=== PATIENT | male | born 1930 | race Caucasian/White ===

== ENCOUNTER 2018-09-29 05:05 | Inpatient (IN) ==
[2018-09-29] MEDS ORDERED: NS 1,000 ML IV ONE (05:43)
[2018-09-29] MEDS ORDERED: ZOFRAN IV ONE (05:44)
[2018-09-29 06:02] LABS: BASO# 0.07 X1000 (0.0-0.2); BASO% 0.7 % (0.0-0.8); EOS# 0.31 X1000 (0.0-0.7); EOS% 2.9 % (0.0-10.0); HEMATOCRIT 39.5 % (42.0-52.0); HEMOGLOBIN 13.3 g/dL (14.0-18.0); IMM GRAN# 0.02 X1000 (0.0-0.04); IMM GRAN% 0.2 % (0.0-0.5); LYMPH# 1.91 X1000 (1.2-3.4); MCH 31.1 PG (27-31); MCHC 33.7 g/dL (33-37); MCV 92.3 FL (81-99); MONO# 0.75 X1000 (0.11-0.59); MONO% 7.1 % (1.7-9.3); MPV 10.6 FL (7.4-10.4); NEUT# 7.55 X1000 (1.4-6.5); NEUT% 71.1 % (42.2-75.2); PLT 215 X1000 (130-400); RBC 4.28 XMIL (4.7-6.1); WBC 10.61 X1000 (4.8-10.8)
--- NOTE | 2018-09-29 06:06 | PROVIDER DOCUMENTATION ---
HPI-General Adult - General Chief Complaint: GI Bleed Stated Complaint: RECTAL BLEEDING Time Seen by Provider: 09/29/18 05:45 Source: patient Allergies/Adverse Reactions: Patient Allergies Allergy/AdvReac Type Severity Reaction Status Date / Time No Known Allergies Allergy Verified 10/17/14 08:19 Home Medications: Home Medication List Medication Instructions Recorded Confirmed Last Taken Type Amlodipine [Norvasc] 5 mg PO BID 10/17/14 10/23/14 10/23/14 03:30 History 5 - History of Present Illness -Gen Adult Nature of Presenting Problems: 88 y/o M presents to the ED complaining of rectal bleeding states he awoke this morning feeling like he needed to use the toilet and when he had a BM noted that it was all bright red blood. States since he has had 6-7 additional similar episodes. With this has felt slightly nauseated but has not had emesis. No fever. Has a similar episode several years ago and states he had a bleeding artery in his colon that required surgery. Does not taken blood thinners. Review of Systems - Adult - REVIEW OF SYSTEMS - ADULT Constitutional: reports: no symptoms reported Eyes: reports: no symptoms reported Ears, Nose, Mouth & Throat: reports: no symptoms reported Cardiovascular: reports: no symptoms reported Respiratory: reports: no symptoms reported Gastrointestinal: reports: rectal bleeding Genitourinary: reports: no symptoms reported Musculoskeletal: reports: no symptoms reported Integumentary: reports: no symptoms reported Neurological: reports: no symptoms reported Psychiatric: reports: no symptoms reported Endocrine: reports: no symptoms reported Hematologic/Lymphatic: reports: no symptoms reported Allergic/Immunologic: reports: no symptoms reported All Other Systems: Reviewed and Negative Past History - Adult - PAST MEDICAL HISTORY-ADULT Review of Records: reports: Old Records Reviewed, Nursing Assessment Review, Medications Reviewed, Social history reviewed & non-contributory. Cardiovascular: reports: HTN Physical Exam-General - PHYSICAL EXAM-ADULT Initial Vital Signs Reviewed: Yes - CONSTITUTIONAL General Appearance: appears well, alert, no apparent distress - EYES Eyes: PERRL/EOMI, pink conjunctivae - HEAD, EARS, NOSE, MOUTH & THROAT HENMT: normocephalic/atraumatic, moist mucous membranes, normal ENT inspection - NECK Neck: non-tender, full range of motion, supple - RESPIRATORY Respiratory: chest non-tender, lungs clear, normal breath sounds - CARDIOVASCULAR Cardiovascular: normal peripheral pulses, regular rate, rhythm, no edema - GASTROINTESTINAL (ABDOMEN) Abdominal Exam: normal bowel sounds, non tender, soft - GENITOURINARY Hemoccult Exam: other (scant bright red blood in rectal exam) - MUSCULOSKELETAL Back Exam: normal inspection, no CVA tenderness, no vertebral tenderness Extremity: normal range of motion, non-tender - SKIN Integumentary: normal color, normal turgor, warm/dry - NEUROLOGIC Neurologic: grossly normal, no motor/sensory deficits - PSYCHIATRIC Psych/Mental Status: normal mood/affect, normal thought content, normal thought process, oriented x 3 Progress - PLAN OF CARE/RESULTS Progress/Plan/Lab Results: Vital Signs - 8 hr 09/29/18 05:15 Temperature 98.4 F Pulse Rate 76 Respiratory Rate 17 Blood Pressure 146/89 O2 Sat by Pulse Oximetry 95 Orders Category Date Time Status IV Insertion ORDERED Care 09/29/18 05:[address] ABD/PELVIS W/IV CONT ONLY [CT] Stat Exams 09/29/18 05:43 Ordered CBC WITH ELECTRONIC DIFF [HEME] Stat Lab 09/29/18 05:35 Results COMPREHENSIVE METABOLIC PANEL [CHEM] Stat Lab 09/29/18 05:35 Received LIPASE [CHEM] Stat Lab 09/29/18 05:35 Received OCCULT BLOOD SCREENING [STOOL] Stat Lab 09/29/18 05:35 Received TYPE & SCREEN [BBK] Stat Lab 09/29/18 05:35 Received 0.9% Sodium Chloride Inj [Ns] 1,000 ml Med 09/29/18 05:43 Active IV 999 mls/hr Ondansetron [Zofran] Med 09/29/18 05:44 Discontinued 4 mg IV NOW ONE gi bleeding no hypotension or tachycardia and well appearing will further evaluate for causes of GI bleed and degree of bleeding. Result Diagrams: 09/29/18 05:35 09/29/18 05:35 - REASSESSMENT Reassessment #1 Status: other (signed out to Dr. Oreilly at [address] results and final disposition) - CONSULTS/PCP/HOSPITALIST Notification #1 *Consult/PCP/Hospitalist*: Dr Gutierres Time Discussed: 08:04 Reason/Comments: agrees to admit pt Consult Disposition: Will see in ED, Admit Departure - Departure Date of Disposition Decision: 09/29/18 Time of Disposition Decision: 08:04 DIAGNOSIS: GI bleeding Disposition: ADMITTED INPATIENT 09 Certified Medical Emergency: Emergent Condition: Fair Referrals and Follow-Ups: Radha Gutierres MD [Primary Care Provider] - - Critical Care Note This patient required my direct & personal management of CC.: No Attestation - Physician/ YOHANA Attestation Patient care was provided by Advanced Practice Provider:: No The physician spent face to face time with patient:: Yes Advanced Practice Provider documentation review:: Supervising physician onsite and consulted in the evaluation and care of this patient. The physician did have a face to face encounter with the patient.
[2018-09-29 06:32] LABS: AGAP 13; ALB/GLOB RATIO 1.4; ALBUMIN 3.9 g/dL (3.5-5.0); ALKALINE PHOSPHATASE 101 U/L (32-122); BUN 24 mg/dL (8-22); CALCIUM 8.6 mg/dL (8.8-10.2); CHLORIDE 108 mmol/L (98-107); COSMO 292; ESTIMATED GFR > 60; GLUCOSE 117 mg/dL (70-104); GOT 15 U/L (10-34); GPT 12 U/L (10-44); LIPASE 36 U/L (13-60); POTASSIUM 4.1 mmol/L (3.5-5.1); SODIUM 144 mmol/L (136-145); TCO2 23 mmol/L (25-35); TOTAL BILIRUBIN 0.34 mg/dL (0.20-1.00); TOTAL PROTEIN 6.7 g/dL (6.3-8.3)
--- NOTE | 2018-09-29 08:04 | Diag Imaging Result Doc PS360 ---
CT ABD/PELVIS W/IV CONT ONLY - 09/29/2018 INDICATION: GI bleeding COMPARISON: 10/25/2014 FINDINGS: There is mild cardiomegaly. The lung bases are clear. Stable bilateral calcified pleural plaques compatible with old asbestos exposure. 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 There are cholecystectomy clips. There are bilateral benign renal cysts. The pancreas, spleen, and adrenals are normal. No bowel obstruction or inflammation. There is severe diverticulosis of the descending and sigmoid colon. Prostate gland is atrophic or absent. Urinary bladder and rectum are normal. No free air or free fluid. Stable left hip prosthesis in good position. There are moderate degenerative changes of the spine. No acute or suspicious bony lesion. IMPRESSION: Severe diverticulosis coli. No acute process. This exam was performed using automated exposure control, adjustment of mA or kV according to patient size, and/or use of iterative reconstruction technique Electronically signed by Fernando Shin 09/29/2018 8:02 AM
[2018-09-29] MEDS ORDERED: PROTONIX IV SCH (08:15)
[2018-09-29] MEDS ORDERED: SODIUM CHLORIDE 0.9% INJ SCH (08:15)
[2018-09-29] MEDS ORDERED: NS 1,000 ML IV SCH (08:15)
--- NOTE | 2018-09-29 11:19 | GASTROENTEROLOGY CONSULTATION ---
DATE: 09/29/2018 REASON FOR CONSULTATION: Hematochezia. HISTORY OF PRESENT ILLNESS: Mr. Berto Oh is an 88-year-old gentleman with HTN, GERD, OA, vitamin B12 deficiency, diverticulosis, R BKA, peripheral neuropathy, and remote partial colectomy secondary to "bleeding artery in the colon" who presents with acute onset rectal bleeding with dark bloody stools. The patient reports awaking around 3AM with lower abdominal cramping and urge to defecate. He subsequently developed multiple bloody stools, as described above, up to 6 times. His last BM was around 5:15AM this AM. His abdominal cramping has now resolved. No N/V/F, CP, SOB, lightheadedness. He reports rectal bleeding in the remote past requiring surgery in the . His last colonoscopy was done by Dr. Miller over 5 years ago. He reports not unable to tolerate Golytely prep in the past and required NGT placement to complete prep. Unknown baseline hgb. 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 PAST SURGICAL HISTORY: Partial colectomy on the left side, right below-knee amputation, bilateral cataract surgery, appendectomy, cholecystectomy, hip replacement on the left side, shoulder surgery bilateral by Dr. Hernandez and Dr. Grant. MEDS: Celebrex, vitamin B12, Colace, Norvasc ALL: NKDA FH: no FHx of GI malignancies SH: No T/E/D PE: VS: T 98.0 HR 95 BP 157/99 RR 18 O2 97% RA GEN: awake, alert, NAD HEENT: anicteric, MMM, EOMI NECK: supple, no jvd CV: RRR, no murmurs PULM: CTAB, no wheezing ABD: surgical scars, NT/ND, NABS EXT: RLE prosthesis, LLE without cce, WWP NEURO: nonfocal LABS: BUN 24 otherwise BMP unremarkable Hgb 13.3 (unknown baseline) WBC/Plts WNL lipase 36 CTAP: CT ABD/PELVIS W/IV CONT ONLY - 09/29/2018 INDICATION: GI bleeding COMPARISON: 10/25/2014 FINDINGS: There is mild cardiomegaly. The lung bases are clear. Stable bilateral calcified pleural plaques compatible with old asbestos exposure. 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 There are cholecystectomy clips. There are bilateral benign renal cysts. The pancreas, spleen, and adrenals are normal. No bowel obstruction or inflammation. There is severe diverticulosis of the descending and sigmoid colon. Prostate gland is atrophic or absent. Urinary bladder and rectum are normal. No free air or free fluid. Stable left hip prosthesis in good position. There are moderate degenerative changes of the spine. No acute or suspicious bony lesion. IMPRESSION: Severe diverticulosis coli. No acute process. ASSESSMENT AND PLAN: Mr. Berto Oh is an 88-year-old gentleman with HTN, GERD, OA, vitamin B12 deficiency, diverticulosis, R BKA, peripheral neuropathy, and remote partial colectomy secondary to "bleeding artery in the colon" who presents hematochezia from suspected diverticular bleed. His rectal bleeding has subsided and CTAP showed severe diverticulosis in the left colon. He reports remote colon surgery for "ruptured artery"; unclear etiology. Will plan for diagnostic colonoscopy given patient has not had a colonoscopy in several years to rule out AVMs, malignancy, bleeding polyp. #LGIB: as above - clear liquid diet - hold blood thinners - fluid resuscitation - trend H/H q8-12 hours, transfuse as needed to maintain hgb between 7-8 - prep with bisacodyl tabs and miralax prep (discussed with pharmacy) tonight - NPO after MN, diagnostic colonoscopy with Dr. Strong tomorrow #HTN: continue norvasc #OA: hold celebrex #Diverticulosis on imaging: noted Thank you for this consult. Will follow with you [facility]
[2018-09-29] MEDS ORDERED: DULCOLAX PO ONE ×2 (16:57→17:00)
[2018-09-29] MEDS ORDERED: MIRALAX PO ONE ×2 (16:59→17:00)
[2018-09-29] MEDS ORDERED: ZOFRAN IV PRN (21:37)
--- NOTE | 2018-09-29 22:15 | HISTORY AND PHYSICAL ---
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 HISTORY OF PRESENT ILLNESS: He is an 88-year-old, pleasant white gentleman who came in with lower GI bleeding, painless. He had 3 bouts of bleeding as per the . Hemodynamics were stable. Belly exam soft, benign. CT scan of the abdomen and pelvis findings noted with diverticulosis. I consulted Dr. Hammond. He has been admitted to the hospital for hematochezia and further evaluation. 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 PAST SURGICAL HISTORY: Partial colectomy on the left side, right below-knee amputation, bilateral cataract surgery, appendectomy, cholecystectomy, hip replacement on the left side, shoulder surgery bilateral by Dr. Hernandez and Dr. Grant. MEDICINES: Celebrex 200 daily, B12 shot 1 mL every month, Colace 100 daily, Norvasc 5 mg daily. ALLERGIES: Not known. SOCIAL HISTORY: He is . Lives in [place]. No smoking. No alcohol. FAMILY HISTORY: Father of pneumonia at 82. Mother of pneumonia at 38. HEALTH MAINTENANCE: Flu vaccine 2016. Last prostate exam October 2017. Colonoscopy was declined. REVIEW OF SYSTEMS: HEENT: No headache. No vision problem. No earache. No sore throat. Cardiopulmonary: No chest pain, shortness of breath, PND, orthopnea. Gastrointestinal: Abdominal cramps. Bleeding per rectum. No weight loss. Genitourinary: No history of hesitancy, frequency, or dysuria. Musculoskeletal: Left leg has numbness in the front of the thigh. Complains off chronic bilateral shoulder pains; left is worse than the right side. PHYSICAL EXAMINATION: VITAL SIGNS: Temperature is 98 degrees, pulse 78, blood pressure is stable. Weight 179 pounds, height 5 feet. Oxygen saturation 93% on room air. HEENT: Atraumatic, normocephalic. Pupils equal, reactive to light. TMs are normal. Nose and throat within normal limits. NECK: Supple. No lymphadenopathy. No goiter. No neck rigidity. CARDIOPULMONARY: Bilateral air entry. No rales, no wheezes. HEART: Sounds are regular. No murmur. ABDOMEN: Belly is soft, nontender. No signs of peritonitis. RECTAL: Deferred. EXTREMITIES: Right below-knee amputation. Left knee had some pain. NEUROLOGIC: No obvious neurological deficits. INVESTIGATIONS: CBC: White cell count 10.6, hematocrit 39.5, platelets 215,000. SMA-7: Sodium 144, potassium 4.1, BUN 24, creatinine 1.0, glucose 117, calcium 8.6. LFTs are normal. CT scan of the abdomen and pelvis: Severe diverticulosis, calcified pleural plaques, vascular disease abdominal aorta and renal arteries, cholecystectomy, bilateral renal cysts, left hip prosthesis, moderate DJD changes in the spine. ASSESSMENT AND PLAN: 1. An 88-year-old white gentleman admitted to the hospital basically with lower gastrointestinal bleeding with hematochezia with diverticulosis. Plan is hemodynamics, orthostatic blood pressure, serial hematocrits, GI consult with Dr. Hammond. 2. Other problems as follows: 3. Left shoulder pains due to osteoarthritis. Going for stem-cell transplant. 4. Hypertension on Norvasc 5 mg daily. 5. Vitamin B12 deficiency, on replacement therapy. 6. Chronic back pain due to degenerative joint disease changes, followed by chiropractor. 7. Status post amputation below knee on the right leg, stable. 8. 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 Slowly got better, and will follow up. 9. Complains of insomnia. Ambien at bedtime. 10. Appreciate the GI consult. Follow up. cc: Demetrius Gutierres MD
[2018-09-29] MEDS: NS 1,000 ML IV SCH (22:23)
[2018-09-29] MEDS: AMBIEN PO PRN (22:23)
[2018-09-30 07:49] LABS: BASO# 0.04 X1000 (0.0-0.2); BASO% 0.5 % (0.0-0.8); EOS# 0.32 X1000 (0.0-0.7); EOS% 4.3 % (0.0-10.0); HEMATOCRIT 37.1 % (42.0-52.0); HEMOGLOBIN 12.4 g/dL (14.0-18.0); LYMPH# 1.11 X1000 (1.2-3.4); MCH 31.1 PG (27-31); MCHC 33.4 g/dL (33-37); MONO% 6.8 % (1.7-9.3); MPV 10.3 FL (7.4-10.4); NEUT# 5.43 X1000 (1.4-6.5); NEUT% 73.4 % (42.2-75.2); PLT 200 X1000 (130-400); RBC 3.99 XMIL (4.7-6.1); RDW 13.1 % (11.5-14.5)
[2018-09-30 08:18] LABS: AGAP 9; BUN 12 mg/dL (8-22); CALCIUM 8.3 mg/dL (8.8-10.2); CHLORIDE 109 mmol/L (98-107); COSMO 287; CREATININE 0.8 mg/dL (0.7-1.2); ESTIMATED GFR > 60; GLUCOSE 104 mg/dL (70-104); POTASSIUM 4.4 mmol/L (3.5-5.1); SODIUM 144 mmol/L (136-145); TCO2 26 mmol/L (25-35)
[2018-09-30] MEDS ORDERED: XYLOCAINE-MPF 2% ONE (09:26)
[2018-09-30] MEDS ORDERED: FENTANYL ONE (09:26)
[2018-09-30] MEDS ORDERED: DIPRIVAN 1% ONE (09:26)
[2018-09-30] MEDS ORDERED: EPHEDRINE ONE (09:49)
[2018-09-30] MEDS ORDERED: SODIUM CHLORIDE 0.9% 10 ML ONE (09:49)
[2018-09-30] MEDS: MIRALAX PO SCH ×2 (11:25→20:58)
[2018-09-30] MEDS: PROTONIX IV SCH (11:26)
--- NOTE | 2018-09-30 11:26 | OPERATIVE NOTE ---
PROCEDURE DATE: 09/30/2018 REQUESTING PHYSICIAN: Dr. Gutierres. TITLE OF PROCEDURE: Ileocolonoscopy. PREOPERATIVE DIAGNOSES: 1. Rectal bleeding. 2. Mild anemia. POSTOPERATIVE DIAGNOSES: 1. Internal hemorrhoids grade 2. On retroflexion, there was evidence of a fair prep with stool throughout the colon with limited visualization, evidence of severe diverticulosis in the sigmoid and descending colon, likely the cause of patient's gastrointestinal bleeding. 2. Normal terminal ileum. ESTIMATED BLOOD LOSS: None. COMPLICATIONS: None. ANESTHESIA: Monitored anesthesia care per the anesthesiologist. SPECIMENS: None. PROCEDURE: After informed consent, the patient explained the risks, benefits, indications, and alternatives of the procedure. The patient was prepared for colonoscopy. The risks of the procedure, including infection, bleeding, pain, trauma to the surrounding structures, perforation, , were explained the patient among others. He acknowledged and agreed to proceed. The patient was brought to the OR. He was turned left lateral position. Rectal exam was performed, which revealed normal rectal tone. No masses felt. No blood on the examining finger. The colonoscope was introduced through the anal verge all the way to the terminal ileum. Terminal was normal. The bowel prep was fair. There was a lot of stool throughout the colon, this was lavaged. The visualization was fair. There was evidence of severe diverticulosis in the descending and sigmoid colon, likely source of patient's GI bleeding. Retroflexion in the rectum revealed internal hemorrhoids, grade 2. The air was aspirated and the scope was withdrawn. The patient tolerated the procedure well and is currently monitored in the OR in stable condition. RECOMMENDATIONS: 1. The patient will be on diverticulosis diet. Avoid excessive corn, nuts, and seeds in diet. 2. We will start patient on MiraLAX 17 g p.o. b.i.d. and we will start the patient on Metamucil 1 tablespoon at bedtime. 3. Watch patient's hematocrit and transfuse as needed. 4. The patient will be started on full liquid diet, advance as tolerated. We will start the patient on full liquid diet today. The above plan of care was discussed with the patient on waking up and all questions answered. Please call us with any further questions. cc: MD Demetrius Kumar MD [facility]
[2018-09-30] MEDS: SODIUM CHLORIDE 0.9% INJ SCH (11:27)
[2018-09-30] MEDS: NS 1,000 ML IV SCH ×2 (15:07→22:39)
[2018-09-30] MEDS: AMBIEN PO PRN (20:58)
[2018-09-30] MEDS ORDERED: METAMUCIL POWDER PACKET PO SCH (21:00)
--- NOTE | 2018-09-30 21:33 | PROGRESS NOTE ---
DATE: 09/30/2018 SUBJECTIVE: The patient had a rough night, excess of 300 mL of blood, unable to finish the GoLYTELY, nausea, abdominal cramps. OBJECTIVE: Vitals: Stable. HEENT: Within normal limits. Chest: Clear. Cardiovascular: Heart sounds are regular. Abdomen: Belly is soft, nontender. Good bowel sounds. INVESTIGATIONS: CBC: White cell count 7.4, hematocrit 37, platelets 200,000. SMA 7 is normal. ASSESSMENT AND PLAN: Lower gastrointestinal bleeding most likely diverticular bleeding. CT is reassuring. Waiting for colonoscopy. Continue IV fluids. Based on the colonoscopy and clinical course, further recommendations will be followed. Repeat the labs in the morning. LEVEL OF DOCUMENTATION: 25 minutes. cc: Demetrius Gutierres MD
[2018-10-01] MEDS: NS 1,000 ML IV SCH (06:53)
[2018-10-01 07:40] LABS: BASO# 0.06 X1000 (0.0-0.2); BASO% 0.8 % (0.0-0.8); EOS# 0.37 X1000 (0.0-0.7); EOS% 4.9 % (0.0-10.0); HEMATOCRIT 32.8 % (42.0-52.0); HEMOGLOBIN 10.9 g/dL (14.0-18.0); LYMPH# 1.28 X1000 (1.2-3.4); LYMPH% 16.9 % (20.5-51.1); MCHC 33.2 g/dL (33-37); MCV 93.2 FL (81-99); MONO# 0.48 X1000 (0.11-0.59); MONO% 6.3 % (1.7-9.3); MPV 10.4 FL (7.4-10.4); NEUT# 5.37 X1000 (1.4-6.5); NEUT% 71.1 % (42.2-75.2); PLT 195 X1000 (130-400); RBC 3.52 XMIL (4.7-6.1); WBC 7.56 X1000 (4.8-10.8)
[2018-10-01 08:02] LABS: AGAP 8; BUN 7 mg/dL (8-22); CALCIUM 8.2 mg/dL (8.8-10.2); CHLORIDE 105 mmol/L (98-107); COSMO 278; CREATININE 0.8 mg/dL (0.7-1.2); ESTIMATED GFR > 60; GLUCOSE 106 mg/dL (70-104); POTASSIUM 4.2 mmol/L (3.5-5.1); SODIUM 140 mmol/L (136-145); TCO2 27 mmol/L (25-35)
[2018-10-01 08:11] VITALS: BP 129/73
[2018-10-01] MEDS ORDERED: SOLU-MEDROL IV ONE (08:30)
[2018-10-01] MEDS: MIRALAX PO SCH (08:47)
--- NOTE | 2018-10-01 10:04 | PROVIDER PROGRESS NOTE ---
Progress Note SUBJECTIVE: No acute overnight events. No N/V/F, CP, SOB, abdominal pain. Patient tolerating full liquids. No BM or rectal bleeding since colonoscopy yesterday. OBJECTIVE: Last Vital Signs Temp 97.9 F 10/01/18 08:00 Pulse 70 10/01/18 08:00 Resp 18 10/01/18 08:00 BP 129/73 10/01/18 08:00 Pulse Ox 96 10/01/18 08:00 Height 5 ft 10 in Weight 172 lb GEN: awake, alert, NAD HEENT: anicteric, MMM, EOMI NECK: supple, no jvd PULM: CTAB, no wheezing CV: RRR, no murmurs ABD: soft NT/ND, NABS EXT: RLE prosthesis, no cce LLE NEURO: nonfocal LABS 10/01/18 10/01/18 07:13 07:13 WBC 7.56 Hgb 10.9 L Plt Count 195 Sodium 140 Potassium 4.2 Chloride 105 Carbon Dioxide 27 BUN 7 L Creatinine 0.8 Colonoscopy 09/30 POSTOPERATIVE DIAGNOSES: 1. Internal hemorrhoids grade 2. On retroflexion, there was evidence of a fair prep with stool throughout the colon with limited visualization, evidence of severe diverticulosis in the sigmoid and descending colon, likely the cause of patient's gastrointestinal bleeding. 2. Normal terminal ileum. A/P: Mr. Berto Oh is an 88-year-old gentleman with HTN, GERD, OA, vitamin B12 deficiency, diverticulosis, R BKA, peripheral neuropathy, and remote partial colectomy secondary to "bleeding artery in the colon" who presented with hematochezia from suspected diverticular bleed. Colonoscopy yesterday showed left-sided diverticulosis and internal hemorrhoids without active bleeding or culprit lesion. Hgb appears to be nadiring. No ongoing rectal bleeding. #LGIB: diverticular - advance diet as tolerated - high fiber diet - avoid constipation - patient is ok to be discharged from GI standpoint #Anemia: from GI bleed #HTN: continue norvasc Patient is being discharged today per primary team
[2018-10-01] MEDS: SODIUM CHLORIDE 0.9% INJ SCH (11:04)
[2018-10-01] MEDS: PROTONIX IV SCH (11:04)
--- NOTE | 2018-10-02 04:27 | DISCHARGE SUMMARY ---
ADMISSION DATE: 09/29/2018 DISCHARGE DATE: 10/01/2018 DISCHARGING DIAGNOSIS: Lower gastrointestinal bleeding due to diverticular bleeding. SECONDARY DIAGNOSES: 1. Diverticulosis. 2. Acid reflux disease. 3. Hypertension. 4. Osteoarthritis. 5. Vitamin B12 deficiency. 6. 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 CONSULTS: Dr. Strong. PROCEDURES: Colonoscopy. Findings are internal hemorrhoids, grade 2, severe diverticulosis, most likely cause of the bleeding. Normal terminal ileum. BRIEF HISTORY: Please see the H and P that was done on the day of admission. In brief, he is an 88-year-old white male with a history of partial colectomy, diverticulosis, came in with hematochezia. He was not taking any blood thinners. He has been suffering from chronic osteoarthritic pain in the shoulders, back, and the left knee. He had right below-knee amputation. HOSPITAL COURSE: He has 1 bout of bleeding, spontaneously subsided. Stable hematocrit, it declined from 37 to 32. Hemodynamics were stable. Further workup, CT scan of the abdomen and pelvis showed diverticulosis as well as on colonoscopy. At the time of discharge, there were no signs of GI bleeding noted. Complains of allergic symptoms for which Solu-Medrol IV 1 dose given, followed by [facility]. LABS: CBC: White cell count 7.5, hematocrit 32.8, platelets 195,000. Sodium 140, potassium 4.2, chloride 105, BUN 7, creatinine 0.8, glucose 106. Liver function tests, amylase, and lipase were normal. 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 DISCHARGE INSTRUCTIONS: 1. Amlodipine 5 p.o. b.i.d., Z-Christian as directed, Icar-C Plus 1 tablet daily. 2. Follow up in my office next week. cc: MD Osmin Godinez MD
== END 2018-10-01 11:00 | disposition home or self-care (01) | DRG 379 ==
LOC: ED 05:05 → EDIPHOLD 12:02 → 3N 18:16
PROVIDERS: ADMIT Internal Medicine; ATTEND Internal Medicine
CPT/HCPCS: 74177; 80048; 80053; 82270; 83690; 85025; 86850; 86900; 86901; 96361; 96374; 96375; 99285; A9270; C9113; J2405; J2930; J3010; J7030; Q9967; S0164